=== PATIENT | female | born 1995 | race Caucasian/White ===

== ENCOUNTER 2017-01-22 20:59 | Inpatient (IN) | payer OTHER ==
[2017-01-22 23:25] LABS: Hematocrit 36 % (35-47); Hemoglobin 12.4 g/dl (12.0-16.0); Mean Corpuscular HGB Conc 34 g/dl (31-36); Mean Corpuscular Hemoglobin 31 pg (27-31); Mean Corpuscular Volume 91 fL (80-97); Mean Platelet Volume 7 um3 (7.4-10.4); Red Blood Count 3.98 10^6/ul (4.0-5.4); Red Cell Distribution Width 13 % (10.5-15)
[2017-01-22 23:42] LABS: ALT 13 U/L (7-52); AST 15 U/L (13-39); Acetaminophen < 15 mcg/mL; Albumin 4.2 g/dL (3.2-5.2); Alcohol < 10 mg/dL (<10); Alkaline Phosphatase 57 U/L (34-104); Anion Gap 7 mmol/L (2-11); BUN/Creatinine Ratio 15.7 (8-20); Blood Urea Nitrogen 11 mg/dL (6-24); CO2 Carbon Dioxide 23 mmol/L (22-32); Chloride 107 mmol/L (101-111); EGFR African American 138.6 (>60); EGFR Non-African American 107.8 (>60); Globulin 2.6 g/dL (2-4); Glucose 142 mg/dL (70-100); Potassium 3.2 mmol/L (3.5-5.0); Salicylate < 2.50 mg/dL (<30); Sodium 137 mmol/L (133-145); Total Protein 6.8 g/dL (6.4-8.9)
[2017-01-22 23:52] LABS: TSH (Thyroid Stimulating Horm) 1.57 mcIU/mL (0.34-5.60)
[2017-01-23] MEDS ORDERED: Acetaminophen TAB* 325 MG PO ONE (01:16)
[2017-01-23 02:09] LABS: Urine Bacteria Absent (Absent); Urine Bilirubin Negative (Negative); Urine Glucose Negative (Negative); Urine Nitrite Negative (Negative)
[2017-01-23 02:37] LABS: Benzodiazepine Urine Screen None Detected (None Detect)
--- NOTE | 2017-01-23 03:54 | ED ---
Arun Oleary Benjamin, scribed for Irma Espinal MD on 01/22/17 at 2228 . Psychiatric Complaint - HPI Summary HPI Summary: 21yo female BIBA for involuntary twitching in her body since 1930 hours today. Twitching first started on her legs, but is now over the whole body. Pt states feeling rigid. Pt also reports feeling depressed the past few months. Pt denies sleeping problems, or any hallucinations. Also reports TORRES. - History Of Current Complaint Chief Complaint: [facility]ental[facility] Time Seen by Provider: 01/22/17 21:37 Hx Obtained From: Patient Onset/Duration: Sudden Onset, Lasting Hours - since 7:30 hours, Still Present Timing: Constant Severity Initially: Mild Severity Currently: Moderate Character: Depressed Aggravating Factor(s): Recent Stress Alleviating Factor(s): Nothing Associated Signs And Symptoms: Positive: Negative Has Suicidal: Denies: Thoughts, With A Plan Has Homicidal: Denies: Thoughts, With A Plan - Allergies/Home Medications Allergies/Adverse Reactions: Allergies Allergy/AdvReac Type Severity Reaction Status Date / Time No Known Allergies Allergy Verified 01/22/17 21:11 Home Medications: Home Medications Sertraline* [Zoloft*] 50 mg PO DAILY 01/22/17 [History Confirmed 01/23/17] PMH/Surg Hx/FS Hx/Imm Hx Psychiatric History: Reports: Hx Depression Infectious Disease History: No Infectious Disease History: Reports: Traveled Outside the in Last 30 Days - [place] Review of Systems Constitutional: Negative Eyes: Negative ENT: Negative Cardiovascular: Negative Respiratory: Negative Gastrointestinal: Negative Genitourinary: Negative Positive: Other - involuntary twitching Positive: Headache Positive: Depressed All Other Systems Reviewed And Are Negative: Yes Physical Exam Triage Information Reviewed: Yes Vital Signs On Initial Exam: Initial Vitals Temp Pulse Resp BP Pulse Ox 99.8 F 85 20 110/96 97 01/22/17 21:10 01/22/17 21:10 01/22/17 21:10 01/22/17 21:10 01/22/17 21:10 Vital Signs Reviewed: Yes Appearance: Positive: Well-Appearing, No Pain Distress, Well-Nourished Skin: Positive: Warm, Skin Color Reflects Adequate Perfusion, Dry Head/Face: Positive: Normal Head/Face Inspection Eyes: Positive: EOMI, XAVI, Conjunctiva Clear ENT: Positive: Normal ENT inspection, Hearing grossly normal Neck: Positive: Supple, Nontender Respiratory/Lung Sounds: Positive: Clear to Auscultation, Breath Sounds Present Cardiovascular: Positive: RRR, Pulses are Symmetrical in both Upper and Lower Extremities Abdomen Description: Positive: Nontender, Soft Bowel Sounds: Positive: Present Musculoskeletal: Positive: Strength/ROM Intact Neurological: Positive: Sensory/Motor Intact, Alert, Oriented to Person Place, Time, Other - kaing bizzare movements both sides, otherwise normal Psychiatric: Positive: Affect/Mood Appropriate Diagnostics - Vital Signs Vital Signs Temp Pulse Resp BP Pulse Ox 01/22/17 21:12 99.8 F 85 20 110/96 97 01/22/17 21:10 99.8 F 85 20 110/96 97 - Laboratory Lab Results: Lab Results 01/22/17 01/22/17 01/22/17 Range/Units 21:45 21:45 23:10 WBC (3.5-10.8) 10^3/ul RBC (4.0-5.4) 10^6/ul Hgb (12.0-16.0) g/dl Hct (35-47) % MCV (80-97) fL MCH (27-31) pg MCHC (31-36) g/dl RDW (10.5-15) % Plt Count (150-450) 10^3/ul MPV (7.4-10.4) um3 Neut % (Auto) (38-83) % Lymph % (Auto) (25-47) % [place] % (Auto) (1-9) % Eos % (Auto) (0-6) % Baso % (Auto) (0-2) % Absolute Neuts (auto) (1.5-7.7) 10^3/ul Absolute Lymphs (auto) (1.0-4.8) 10^3/ul Absolute Monos (auto) (0-0.8) 10^3/ul Absolute Eos (auto) (0-0.6) 10^3/ul Absolute Basos (auto) (0-0.2) 10^3/ul Absolute Nucleated RBC 10^3/ul Nucleated RBC % Sodium 137 (133-145) mmol/L Potassium 3.2 L (3.5-5.0) mmol/L Chloride 107 (101-111) mmol/L Carbon Dioxide 23 (22-32) mmol/L Anion Gap 7 (2-11) mmol/L BUN 11 (6-24) mg/dL Creatinine 0.70 (0.51-0.95) mg/dL Est GFR ( Amer) 138.6 (>60) Est GFR (Non-Af Amer) 107.8 (>60) BUN/Creatinine Ratio 15.7 (8-20) Glucose 142 H (70-100) mg/dL Calcium 9.0 (8.6-10.3) mg/dL Total Bilirubin 0.20 (0.2-1.0) mg/dL AST 15 (13-39) U/L ALT 13 (7-52) U/L Alkaline Phosphatase 57 (34-104) U/L Total Protein 6.8 (6.4-8.9) g/dL Albumin 4.2 (3.2-5.2) g/dL Globulin 2.6 (2-4) g/dL Albumin/Globulin Ratio 1.6 (1-3) TSH 1.57 (0.34-5.60) mcIU/mL Urine Color Yellow Urine Appearance Clear Urine pH 7.0 (5-9) Ur Specific [place] 1.011 (1.010-1.030) Urine Protein Negative (Negative) Urine Ketones Negative (Negative) Urine Blood 1+ H (Negative) Urine Nitrate Negative (Negative) Urine Bilirubin Negative (Negative) Urine Urobilinogen Negative (Negative) Ur Leukocyte Esterase Negative (Negative) Urine WBC (Auto) Absent (Absent) Urine RBC (Auto) 2+(6-10/hpf) H (Absent) Ur Squamous Epith Cells Present H (Absent) Urine Bacteria Absent (Absent) Urine Glucose Negative (Negative) Salicylates < 2.50 (<30) mg/dL Urine Opiates Screen None detected (None Detect) Acetaminophen < 15 mcg/mL Ur Barbiturates Screen None detected (None Detect) Ur Phencyclidine Scrn None detected (None Detect) Ur Amphetamines Screen None detected (None Detect) U Benzodiazepines Scrn None detected (None Detect) Urine Cocaine Screen None detected (None Detect) U Cannabinoids Screen Presumptive positive H (None Detect) Serum Alcohol < 10 (<10) mg/dL 01/22/17 Range/Units 23:10 WBC 8.0 (3.5-10.8) 10^3/ul RBC 3.98 L (4.0-5.4) 10^6/ul Hgb 12.4 (12.0-16.0) g/dl Hct 36 (35-47) % MCV 91 (80-97) fL MCH 31 (27-31) pg MCHC 34 (31-36) g/dl RDW 13 (10.5-15) % Plt Count 297 (150-450) 10^3/ul MPV 7 L (7.4-10.4) um3 Neut % (Auto) 59.5 (38-83) % Lymph % (Auto) 30.8 (25-47) % [place] % (Auto) 7.7 (1-9) % Eos % (Auto) 1.5 (0-6) % Baso % (Auto) 0.5 (0-2) % Absolute Neuts (auto) 4.7 (1.5-7.7) 10^3/ul Absolute Lymphs (auto) 2.5 (1.0-4.8) 10^3/ul Absolute Monos (auto) 0.6 (0-0.8) 10^3/ul Absolute Eos (auto) 0.1 (0-0.6) 10^3/ul Absolute Basos (auto) 0 (0-0.2) 10^3/ul Absolute Nucleated RBC 0 10^3/ul Nucleated RBC % 0.1 Sodium (133-145) mmol/L Potassium (3.5-5.0) mmol/L Chloride (101-111) mmol/L Carbon Dioxide (22-32) mmol/L Anion Gap (2-11) mmol/L BUN (6-24) mg/dL Creatinine (0.51-0.95) mg/dL Est GFR ( Amer) (>60) Est GFR (Non-Af Amer) (>60) BUN/Creatinine Ratio (8-20) Glucose (70-100) mg/dL Calcium (8.6-10.3) mg/dL Total Bilirubin (0.2-1.0) mg/dL AST (13-39) U/L ALT (7-52) U/L Alkaline Phosphatase (34-104) U/L Total Protein (6.4-8.9) g/dL Albumin (3.2-5.2) g/dL Globulin (2-4) g/dL Albumin/Globulin Ratio (1-3) TSH (0.34-5.60) mcIU/mL Urine Color Urine Appearance Urine pH (5-9) Ur Specific Brady (1.010-1.030) Urine Protein (Negative) Urine Ketones (Negative) Urine Blood (Negative) Urine Nitrate (Negative) Urine Bilirubin (Negative) Urine Urobilinogen (Negative) Ur Leukocyte Esterase (Negative) Urine WBC (Auto) (Absent) Urine RBC (Auto) (Absent) Ur Squamous Epith Cells (Absent) Urine Bacteria (Absent) Urine Glucose (Negative) Salicylates (<30) mg/dL Urine Opiates Screen (None Detect) Acetaminophen mcg/mL Ur Barbiturates Screen (None Detect) Ur Phencyclidine Scrn (None Detect) Ur Amphetamines Screen (None Detect) U Benzodiazepines Scrn (None Detect) Urine Cocaine Screen (None Detect) U Cannabinoids Screen (None Detect) Serum Alcohol (<10) mg/dL Result Diagrams: 01/22/17 23:10 01/22/17 23:10 Lab Statement: Any lab studies that have been ordered have been reviewed, and results considered in the medical decision making process. Re-Evaluation - Re-Evaluation First Eval Re-Evaluation Time: 01:30 Change: Improved - No TORRES. No longer having bizarre movements Course/Dx - Course Course Of Treatment: Reviewed pts medication and allergy lists. Blood pressure noted. pt initially reported depression to the ED triage nurse and was on initial exam found to be moving her upper and lower extremities in a strange way almost like a tick her neuro exam was otherwise normal and pt seemed non plussed by this reporting it in a very casueal way. she denies any history of huntingtons chorea in her family or issues with antidepressants in the past. On second evaluation these symptoms as well as a headache that she initially complained of were resolved.she was seen by mental health and admitted - Differential Dx/Clinical Impression Provider Diagnosis: Depression Discharge - Discharge Plan Condition: Stable Disposition: ADMITTED TO [facility] documentation as recorded by the Arun villavicencio Benjamin accurately reflects the service I personally performed and the decisions made by me, Irma Espinal MD.
[2017-01-23] MEDS ORDERED: Nicotine GUM* 2 MG PO PRN (05:41)
[2017-01-23] MEDS ORDERED: Nicotine Inhaler* 10 MG AMP INH PRN (05:41)
[2017-01-23] MEDS ORDERED: Al Hydrox/Mg Hydrox/Simet LIQ* 30 ML UDC PO PRN (05:41)
[2017-01-23] MEDS ORDERED: Mouth Piece, Nicotine* 1 EACH CARTRIDGE INH SCH (05:41)
[2017-01-23] MEDS ORDERED: Sertraline* 50 MG TAB PO SCH ×3 (09:00→14:29)
--- NOTE | 2017-01-23 10:27 | HP ---
H&P (Free Text) History and Physical: HPI: ---- Patient is a 21yo female with PPHx significant for MDD, R, S, Social Anxiety d/ o, Cannabis use d/o, and Tension TORRES. Patient presents to the [facility] ED reporting worsening anxiety and depressive symptoms [place]. Patient also reports involuntary muscle twitches which have become more generalized over the last week. Patient endorses SI, but denies planning. Patient moved on 01/06/2017 to begin classes at [employer] this semester. Patient reports having reservations about the transfer prior to leaving [place]. She reports attending [employer] is for her mom and to please her dad. She is starting as a sophomore. Patient did year one at the [employer]. Patient reports feeling closed off from her support system. She reports recent hypersomnolence and significant fatigue after attending a class. She reports hx of social anxiety d/o symptoms in HS. Patient reports [place] in [place] Patient reports diminished memory and concentration. She also reports poor energy and motivation. Patient has initiated the process to be seen at [facility] the [facility]. Patient reports hx of 1 suicide attempt at age 18yo by OD, stressors: family relational issues, feeling isolated at school, and the recent breakup with a BF. She was started on Zoloft 50mg by PCP in [place] prior to her move. Patient denies hx of emotional, physical, or sexual abuse. Patient reports neither alcohol or illicit substances play a role in her worsening MH symptoms. She reports ongoing fleeting SI w/o plan. She reports feeling safe on the unit. She denies HI and AH/VH. She reports no symptoms of psychosis nor were any elicited on interview. Past Psych Hx: Inpt - Patient reports one prior psychiatric hospitalization in [place] for depression and SI. Outpt - Patient reports she has begun process to be seen by [facility] at [employer], but she has not had her 1st appt. Psychotropic med hx - Duloxetine(pt. reported allergy), Ritalin, Fluoxetine, currently on Zoloft(started 11/2016) Suicide attempt Hx / SIB Hx: Patient reports hx of 1 suicide attempt at age 18yo by OD, stressors: family relational issues, feeling isolated at school, and the recent breakup with a BF. Trauma Hx: -Patient denies hx of emotional, physical, or sexual abuse. Substance Hx: Patient denies hx of Alcohol use d/o. Patient reports rare use of cannabis, last 2 weeks ago. Patient reports remote hx, around age 19yo, of experimenting with powder cocaine , 1-2 times. Patient denies hx of use of other illicit substances. Medical Hx: NONE Allergies: --------- NKDA Family Hx: -Patient denies family history of MH issues. -Patient denies family history of ANNALISA symptoms. -Patient reports she is to her knowledge the only one in her family with history of SIB and suicide attempt. Social Hx: --------- -Born in [place] -Raised in [facility] -Raised by both parents -2 brothers and 1 sister -Patient moved to [facility] from [place] less than 1 month ago to start at [employer] -Currently a sophomore at [employer] -Patient reports no access to firearms -Patient reports she has no stockpiles of old Rx pills Home Medications: Home Medications Medication Instructions Recorded Confirmed Type Sertraline* [Zoloft*] 50 mg PO DAILY 01/22/17 01/23/17 History VITALS: Vital Signs (72 hours) 01/22/17 01/22/17 01/22/17 21:10 21:12 21:44 Temperature 99.8 F 99.8 F Pulse Rate 85 85 Respiratory 20 20 Rate Blood Pressure 110/96 110/96 120/51 (mmHg) O2 Sat by Pulse 97 97 Oximetry 01/22/17 01/22/17 01/22/17 21:46 22:00 22:30 Temperature Pulse Rate 91 106 85 Respiratory Rate Blood Pressure 107/60 109/45 (mmHg) O2 Sat by Pulse 97 99 96 Oximetry 01/22/17 01/22/17 01/23/17 23:00 23:30 00:00 Temperature Pulse Rate 80 62 67 Respiratory Rate Blood Pressure 102/46 99/53 (mmHg) O2 Sat by Pulse 96 98 97 Oximetry 01/23/17 01/23/17 01/23/17 00:01 00:30 01:00 Temperature Pulse Rate 68 73 80 Respiratory Rate Blood Pressure 95/47 101/50 100/57 (mmHg) O2 Sat by Pulse 97 97 97 Oximetry 01/23/17 01/23/17 01/23/17 01:30 01:50 08:44 Temperature 98.4 F Pulse Rate 62 67 66 Respiratory 16 Rate Blood Pressure 100/58 109/54 113/58 (mmHg) O2 Sat by Pulse 97 98 98 Oximetry 01/23/17 09:49 Temperature 98.4 F Pulse Rate 66 Respiratory 16 Rate Blood Pressure 113/58 (mmHg) O2 Sat by Pulse 99 Oximetry LABS: ----- Laboratory Tests 01/22/17 01/22/17 01/22/17 21:45 21:45 23:10 WBC RBC Hgb Hct MCV MCH MCHC RDW Plt Count MPV Neut % (Auto) Lymph % (Auto) [place] % (Auto) Eos % (Auto) Baso % (Auto) Absolute Neuts (auto) Absolute Lymphs (auto) Absolute Monos (auto) Absolute Eos (auto) Absolute Basos (auto) Absolute Nucleated RBC Nucleated RBC % Sodium 137 Potassium 3.2 L Chloride 107 Carbon Dioxide 23 Anion Gap 7 BUN 11 Creatinine 0.70 Est GFR ( Amer) 138.6 Est GFR (Non-Af Amer) 107.8 BUN/Creatinine Ratio 15.7 Glucose 142 H Calcium 9.0 Total Bilirubin 0.20 AST 15 ALT 13 Alkaline Phosphatase 57 Total Protein 6.8 Albumin 4.2 Globulin 2.6 Albumin/Globulin Ratio 1.6 TSH 1.57 Urine Color Yellow Urine Appearance Clear Urine pH 7.0 Ur Specific [place] 1.011 Urine Protein Negative Urine Ketones Negative Urine Blood 1+ H Urine Nitrate Negative Urine Bilirubin Negative Urine Urobilinogen Negative Ur Leukocyte Esterase Negative Urine WBC (Auto) Absent Urine RBC (Auto) 2+(6-10/hpf) H Ur Squamous Epith Cells Present H Urine Bacteria Absent Urine Glucose Negative Salicylates < 2.50 Urine Opiates Screen None detected Acetaminophen < 15 Ur Barbiturates Screen None detected Ur Phencyclidine Scrn None detected Ur Amphetamines Screen None detected U Benzodiazepines Scrn None detected Urine Cocaine Screen None detected U Cannabinoids Screen Presumptive positive H Serum Alcohol < 10 01/22/17 23:10 WBC 8.0 RBC 3.98 L Hgb 12.4 Hct 36 MCV 91 MCH 31 MCHC 34 RDW 13 Plt Count 297 MPV 7 L Neut % (Auto) 59.5 Lymph % (Auto) 30.8 [place] % (Auto) 7.7 Eos % (Auto) 1.5 Baso % (Auto) 0.5 Absolute Neuts (auto) 4.7 Absolute Lymphs (auto) 2.5 Absolute Monos (auto) 0.6 Absolute Eos (auto) 0.1 Absolute Basos (auto) 0 Absolute Nucleated RBC 0 Nucleated RBC % 0.1 Sodium Potassium Chloride Carbon Dioxide Anion Gap BUN Creatinine Est GFR ( Amer) Est GFR (Non-Af Amer) BUN/Creatinine Ratio Glucose Calcium Total Bilirubin AST ALT Alkaline Phosphatase Total Protein Albumin Globulin Albumin/Globulin Ratio TSH Urine Color Urine Appearance Urine pH Ur Specific [place] Urine Protein Urine Ketones Urine Blood Urine Nitrate Urine Bilirubin Urine Urobilinogen Ur Leukocyte Esterase Urine WBC (Auto) Urine RBC (Auto) Ur Squamous Epith Cells Urine Bacteria Urine Glucose Salicylates Urine Opiates Screen Acetaminophen Ur Barbiturates Screen Ur Phencyclidine Scrn Ur Amphetamines Screen U Benzodiazepines Scrn Urine Cocaine Screen U Cannabinoids Screen Serum Alcohol PHYSICAL EXAM: Patient declines PE. Please see H&P documented in the [facility]: Psychiatric Complaint note dated 01/22/17. MSE: ----- Appearance - moderate build female, looks stated age, fair hygeine, in NAD Behavior - calm, cooperative Speech - RVR, prosody wnl Eye Contact - good Mood - "depressed" Affect - depressed TP - linear and GD TC - concerns with worsening depression Perception - no signs of psychosis noted or reported Orientation - A&Ox3 Cognition - intact Insight - poor Judgement - poor SI / HI - SI present on admission, currently denies both ASSESSMENT: 1. MDD, R, S w/ Anxious distress 2. Social Anxiety d/o 3. Cannabis use d/o 4. Tension TORRES PLAN: ------ 1. Continue admission to [facility] for safety and symptom mx. 2. Increase home dose Zoloft 50mg to 150mg po daily for mood and anxiety. 3. Patient gives informed consent to start Amitryptiline 50mg po qhs for insomnia and tension HAs. 4. Continue compiling collateral information from family and [facility] providers. 5. Patient to participate in milieu activities and groups.
[2017-01-23] MEDS: Vitamin THERAPEUTIC TAB PO SCH (14:03)
[2017-01-23] MEDS: Acetaminophen TAB* 325 MG PO PRN (20:20)
[2017-01-23] MEDS ORDERED: Amitriptyline TAB* 50 MG PO SCH (21:00)
[2017-01-24 07:53] VITALS: BP 110/60
[2017-01-24] MEDS: Vitamin THERAPEUTIC TAB PO SCH (09:30)
[2017-01-24] MEDS: Methylphenidate TAB* 5 MG PO SCH ×2 (09:31→14:03)
--- NOTE | 2017-01-24 10:36 | DS ---
Subjective - Subjective Service Types: 17967 Hosp DC Day Mgmt simple under 30 min Subjective: Patient noted to be visible most of the day in the milieu, pleasant, social with peers and attending groups. Patient reports med compliance and denies med s/e's. Patient educated on black box warning regarding young adults having increased risk of developing SI due to med. She was instructed to discuss stopping this med with her outpt MH provider if SI recurs. This provider was able to speak with patient's father by phone. He reported patient's Aunt will be flying in from [place] to be with patient over the next week. Dad reports per his recent conversations with patient and per her hx, he feels comfortable with patient discharging home today. Patient reports feeling ready for discharge. Patient is A&Ox4, linear and GD in TP, and future oriented in TC. Patient reports desire to get back to classes. Patient again denies SI/HI and AH/VH. Patient is psychiatrically stable. Discharge plan has been discussed and patient is amenable and acknowledges understanding. Patient instructed to call the crisis hotline, 911, or self present to a local ED if SI recurs. Patient was amenable and acknowledged understanding of family and community supports. Patient will be discharged home. Objective - Appearance Appearance: Well Developed/Nourished Dysmorphic Features: No Hygiene: Normal Grooming: Fairly Well Kept - Behavior Psychomotor Activities: Normal Exhibits Abnormal Movement: No - Attitude and Relatedness Attitude and Relatedness: Cooperative Eye Contact: Good - Speech Quality: Unpressured Latencies: Normal Quantity: Appropriate - Mood Patient's Decription of Mood: "Okay" - Affect Observed Affect: Fair Affect Consistent with: Euthymia - Thought Process Patient's Thought Process: Coherent Thought Content: No Passive Wish, No Suicidal Planning, No Homicidal Ideation, No Paranoid Ideation - Sensorium Experiencing Hallucinations: No, Sensorium is Clear Type of Hallucinations: Visual: No, Auditory: No, Command: No - Level of Consciousness Level of Consciousness: Alert Orientation: Yes Intact, Yes Orientated to Time, Yes Orientated to Place, Yes Orientated to Person - Impulse Control Impulse Control: Intact - Insight and Judgement Insight and Judgement: Fair - Group Participation Particating in Group Activities: Yes - Medication Management Medication Management Adherence: Yes Treatment Course & Assessment Clinical Course & Impression: HOSPITAL COURSE: Patient is a 21yo female with PPHx significant for MDD, R, S, Social Anxiety d/ o, Cannabis use d/o, and Tension TORRES. Patient [place] [facility] reporting worsening anxiety and depressive symptoms [place] Patient also reports involuntary muscle twitches which have become more generalized over the last week. Patient endorses SI, but denies planning. Patient moved on 01/06/2017 to begin classes at [employer] this semester. Patient reports having reservations about the transfer prior to leaving [place]. She reports attending [employer] is for her mom and to please her dad. She is starting as a sophomore. Patient did year one at the [employer]. Patient reports feeling closed off from her support system. She reports recent hypersomnolence and significant fatigue after attending a class. She reports hx of social anxiety d/o symptoms in HS. Patient reports [place] in [place] Patient reports diminished memory and concentration. She also reports poor energy and motivation. Patient has initiated the process to be seen at [facility] on the [employer] campus. Patient reports hx of 1 suicide attempt at age 18yo by OD, stressors: family relational issues, feeling isolated at school, and the recent breakup with a BF. She was started on Zoloft 50mg by PCP in [place] prior to her move. Patient denies hx of emotional, physical, or sexual abuse. Patient reports neither alcohol or illicit substances play a role in her worsening MH symptoms. She reports ongoing fleeting SI w/o plan. She reports feeling safe on the unit. She denies HI and AH/VH. She reports no symptoms of psychosis nor were any elicited on interview. On admission patient's home dose Zoloft was increased from 50mg to 150mg po daily for mood and anxiety symptoms. Patient gave informed consent to start Elavil 50mg po qhs for mx of chronic tension headaches. Patient also re -started on home dose Ritalin at 15mg po BID for ADHD symptoms. Patient noted to be visible most of the day in the milieu, pleasant, social with peers and attending groups. Patient reported med compliance and denied med s/e's on new psychotropic regimen. Patient educated on black box warning regarding young adults having increased risk of developing SI due to med. She was instructed to discuss stopping this med with her outpt MH provider if SI recurs. This provider was able to speak with patient's father by phone. He reported patient's Aunt will be flying in from [place] to be with patient over the next week. Dad reports per his recent conversations with patient and per her hx, he feels comfortable with patient discharging home today. Patient reports feeling ready for discharge. Patient is A&Ox4, linear and GD in TP, and future oriented in TC. Patient reports desire to get back to classes. Patient again denies SI/HI and AH/VH. Patient is psychiatrically stable. Discharge plan has been discussed and patient is amenable and acknowledges understanding. Patient instructed to call the crisis hotline, 911, or self present to a local ED if SI recurs. Patient was amenable and acknowledged understanding of family and community supports. Patient will be discharged home. Pertinent Labs: Laboratory Tests 01/22/17 01/22/17 01/22/17 21:45 21:45 23:10 WBC RBC Hgb Hct MCV MCH MCHC RDW Plt Count MPV Neut % (Auto) Lymph % (Auto) Juncos % (Auto) Eos % (Auto) Baso % (Auto) Absolute Neuts (auto) Absolute Lymphs (auto) Absolute Monos (auto) Absolute Eos (auto) Absolute Basos (auto) Absolute Nucleated RBC Nucleated RBC % Sodium 137 Potassium 3.2 L Chloride 107 Carbon Dioxide 23 Anion Gap 7 BUN 11 Creatinine 0.70 Est GFR ( Amer) 138.6 Est GFR (Non-Af Amer) 107.8 BUN/Creatinine Ratio 15.7 Glucose 142 H Calcium 9.0 Total Bilirubin 0.20 AST 15 ALT 13 Alkaline Phosphatase 57 Total Protein 6.8 Albumin 4.2 Globulin 2.6 Albumin/Globulin Ratio 1.6 TSH 1.57 Urine Color Yellow Urine Appearance Clear Urine pH 7.0 Ur Specific Wallace 1.011 Urine Protein Negative Urine Ketones Negative Urine Blood 1+ H Urine Nitrate Negative Urine Bilirubin Negative Urine Urobilinogen Negative Ur Leukocyte Esterase Negative Urine WBC (Auto) Absent Urine RBC (Auto) 2+(6-10/hpf) H Ur Squamous Epith Cells Present H Urine Bacteria Absent Urine Glucose Negative Salicylates < 2.50 Urine Opiates Screen None detected Acetaminophen < 15 Ur Barbiturates Screen None detected Ur Phencyclidine Scrn None detected Ur Amphetamines Screen None detected U Benzodiazepines Scrn None detected Urine Cocaine Screen None detected U Cannabinoids Screen Presumptive positive H Serum Alcohol < 10 01/22/17 23:10 WBC 8.0 RBC 3.98 L Hgb 12.4 Hct 36 MCV 91 MCH 31 MCHC 34 RDW 13 Plt Count 297 MPV 7 L Neut % (Auto) 59.5 Lymph % (Auto) 30.8 Juncos % (Auto) 7.7 Eos % (Auto) 1.5 Baso % (Auto) 0.5 Absolute Neuts (auto) 4.7 Absolute Lymphs (auto) 2.5 Absolute Monos (auto) 0.6 Absolute Eos (auto) 0.1 Absolute Basos (auto) 0 Absolute Nucleated RBC 0 Nucleated RBC % 0.1 Sodium Potassium Chloride Carbon Dioxide Anion Gap BUN Creatinine Est GFR ( Amer) Est GFR (Non-Af Amer) BUN/Creatinine Ratio Glucose Calcium Total Bilirubin AST ALT Alkaline Phosphatase Total Protein Albumin Globulin Albumin/Globulin Ratio TSH Urine Color Urine Appearance Urine pH Ur Specific Wallace Urine Protein Urine Ketones Urine Blood Urine Nitrate Urine Bilirubin Urine Urobilinogen Ur Leukocyte Esterase Urine WBC (Auto) Urine RBC (Auto) Ur Squamous Epith Cells Urine Bacteria Urine Glucose Salicylates Urine Opiates Screen Acetaminophen Ur Barbiturates Screen Ur Phencyclidine Scrn Ur Amphetamines Screen U Benzodiazepines Scrn Urine Cocaine Screen U Cannabinoids Screen Serum Alcohol Consultants: none Discharge Meds: Home Medications Medication Instructions Recorded Confirmed Type Amitriptyline TAB* [Elavil TAB*] 50 mg PO BEDTIME #30 tab 01/24/17 Rx Methylphenidate TAB* [Ritalin TAB*] 15 mg PO 0700,1400 #90 tab MDD 30mg Rx Sertraline* [Zoloft*] 150 mg PO 0900 #90 tab 01/24/17 Rx Vitamin THERAPEUTIC TAB* 1 tab PO DAILY #30 tab 01/24/17 Rx [Theragran TAB*] Follow-Up: Appt. with [employer] [facility] made by [facility] for within 2 weeks of discharge. Clear for Discharge: Adequate Clinical Respons, Acceptable Safety Profile Discharge Planning - Discharge Planning Discharge Plan: Outpatient Follow Up Outpatient Program: Counseling/Psych Services at [employer] Medications: Current Medications Acetaminophen (Tylenol Tab*) 650 mg PO Q4H PRN PRN Reason: PAIN or TEMP > 101 F Last Admin: 01/23/17 20:20 Dose: 650 mg Al Hydrox/Mg Hydrox/Simethicone (Maalox Plus*) 30 ml PO Q4H PRN PRN Reason: INDIGESTION Amitriptyline HCl (Elavil Tab*) 50 mg PO BEDTIME [facility] Last Admin: 01/23/17 20:20 Dose: 50 mg Device (Nicotine Mouth Piece*) 1 each INH .[place] Methylphenidate HCl (Ritalin Tab*) 15 mg PO 0700,1400 [facility] Last Admin: 01/24/17 09:31 Dose: 15 mg Multivitamins (Theragran Tab*) 1 tab PO DAILY [facility] Last Admin: 01/24/17 09:30 Dose: 1 tab Nicotine (Nicotine Inhaler*) 10 mg INH Q2H PRN PRN Reason: CRAVING Nicotine Polacrilex (Nicotine Gum*) 2 mg PO Q2H PRN PRN Reason: CRAVING Sertraline HCl (Zoloft*) 150 mg PO 0900 [facility] Last Admin: 01/24/17 09:30 Dose: 150 mg Discharge Planning: Prescriptions provided for discharge [x] Yes [] No Follow up care details as per social work arrangements. Patient response to discharge plan: [] eager for discharge [x] agreeable with discharge plan [] ambivalent about discharge [] disagrees with discharge today
--- NOTE | 2017-01-24 11:51 | PN ---
[facility]: Group Therapy Note - Service Type Service Type: 60822 Group Psychotherapy - Cognitive Behavioral Group Therapy ( CBT):Patient was attentive and participatory in CBT programming this morning, and remained in good behavioral control. Patient expressed positive insights regarding relevant treatment interventions and goals.
[2017-01-24] MEDS: Acetaminophen TAB* 325 MG PO PRN (12:31)
== END 2017-01-24 13:25 | disposition home or self-care (01) | DRG 885 ==
LOC: ED 20:59 → BSU 01-23 09:46
PROVIDERS: ADMIT Psychiatry & Neurology Psychiatry; ATTEND Psychiatry & Neurology Psychiatry
DX: F33.2 Major depressive disorder, recurrent severe without psychotic features (principal); F41.8 Other specified anxiety disorders; F12.90 Cannabis use, unspecified, uncomplicated; G44.209 Tension-type headache, unspecified, not intractable
CPT/HCPCS: 36415; 80053; 80307; 80320; 80329; 81003; 81015; 84443; 85025; 90853; 99222; 99238; A9270-GY; G0480